=== PATIENT | male | born 1965 | race African-American/Black ===

== ENCOUNTER 2016-05-30 10:34 | Emergency (ER) | payer MEDICARE ==
[2016-05-30] MEDS ORDERED: DUONEB INH ONE ×2 (11:27)
[2016-05-30] MEDS ORDERED: METHYLPRED SOD SUCC 125 MG/2 ML VIAL ONE (14:21)
== END 2016-05-30 16:06 | disposition home or self-care (01) ==
LOC: ER 10:34
DX: J20.9 Acute bronchitis, unspecified (principal)
CPT/HCPCS: 36415 ×2; 71020 ×2; 80053 ×2; 82553 ×2; 83880 ×2; 84484 ×2; 85025 ×2; 85610 ×2; 85730 ×2; 93005 ×2; 94640 ×2; 94799; 96374 ×2; 99284; J2930